=== PATIENT | male | born 1990 | race Caucasian/White ===

== ENCOUNTER 2024-09-12 17:13 | Inpatient (IN) | payer OTHER ==
[2024-09-12 17:59] VITALS: BMI 31.1
[2024-09-12] MEDS ORDERED: POLYETHYLENE GLYCOL (HEALTHYLAX) 3350 17 GM PACKET PO PRN (20:10)
[2024-09-12] MEDS ORDERED: BENZOCAINE/MENTHOL (CHLORASEPTIC ) LOZENGE MM PRN (20:10)
[2024-09-12] MEDS ORDERED: ACETAMINOPHEN 325 MG TABLET (FP) PO PRN (20:10)
[2024-09-12] MEDS ORDERED: MAG HYDROX/AL HYDROX/SIMETH 30 ML UNIT-DOSE CUP PO PRN (20:10)
[2024-09-12] MEDS ORDERED: BENZONATATE 200 MG CAPSULE PO PRN (20:10)
[2024-09-12] MEDS ORDERED: guaiFENesin 600 MG TABLET.ER (FP) PO PRN (20:10)
[2024-09-12] MEDS ORDERED: IBUPROFEN 400 MG TABLET (FP) PO PRN (20:10)
[2024-09-12] MEDS ORDERED: LOPERAMIDE HCL 2 MG CAPSULE PO PRN (20:10)
[2024-09-12] MEDS ORDERED: ONDANSETRON *ODT* 4 MG TABLET SL PRN (20:10)
[2024-09-12] MEDS ORDERED: DICYCLOMINE HCL 10 MG CAPSULE PO PRN (20:10)
[2024-09-12] MEDS ORDERED: MAGNESIUM HYDROX 2400MG/30ML ORAL SUSPENSION 30 ML CUP PO PRN (20:10)
[2024-09-12] MEDS ORDERED: IBUPROFEN 600 MG TABLET (FP) PO PRN (20:10)
[2024-09-12] MEDS ORDERED: BISMUTH SUBSALICYLATE 524 MG/30 ML PO PRN (20:10)
[2024-09-12] MEDS ORDERED: chlordiazePOXIDE HCL 25 MG CAPSULE PO PRN (20:11)
[2024-09-12] MEDS ORDERED: levETIRAcetam 500 MG TABLET (FP) PO ONE (21:41)
[2024-09-12] MEDS ORDERED: chlordiazePOXIDE HCL 25 MG CAPSULE ONE ×2 (21:41→21:56)
[2024-09-12] MEDS ORDERED: METOPROLOL TARTRATE 25 MG TABLET (FP) ONE (21:42)
[2024-09-12] MEDS ORDERED: MELATONIN 5 MG TABLETS ONE (21:42)
[2024-09-12] MEDS: THIAMINE 100 MG TABLET PO SCH (21:51)
[2024-09-12] MEDS: levETIRAcetam 500 MG TABLET (FP) PO SCH (21:51)
[2024-09-12] MEDS: MELATONIN 5 MG TABLETS PO SCH (21:51)
[2024-09-12] MEDS: METOPROLOL TARTRATE 25 MG TABLET (FP) PO ONE ×2 (21:51→23:50)
[2024-09-12] MEDS: chlordiazePOXIDE HCL 25 MG CAPSULE PO ONE (21:52)
[2024-09-12] MEDS: chlordiazePOXIDE HCL 25 MG CAPSULE PO SCH (22:02)
[2024-09-12] MEDS: METHOCARBAMOL 500 MG TABLET PO PRN (23:41)
[2024-09-12] MEDS: hydrOXYzine PAMOATE 25 MG CAPSULE (FP) PO PRN (23:41)
[2024-09-13] MEDS: PRENATAL VITAMINS W/ FOLIC ACID TABLET (FP) PO SCH (10:14)
[2024-09-13 12:55] LABS: POTASSIUM 3.7 mmol/L (3.5-5.1)
[2024-09-13 13:01] LABS: HEMATOCRIT 40.4 % (35.4-49); HEMOGLOBIN 13.7 GM/dL (11.7-16.9); MCH 32.6 pg (25.7-33.7); MEAN CELL VOLUME 96.1 fl (80-96); MEAN PLT VOLUME 8.7 fl (7.5-11.1); PLATELET COUNT 245 10^3/uL (134-434); RBC 4.21 M/mm3 (4.00-5.60); RDW 15.9 % (11.9-15.9); WHITE BLOOD COUNT 7.2 K/mm3 (4.0-10.0)
[2024-09-13 13:06] LABS: ALBUMIN 3.4 g/dl (3.4-5.0); BLOOD UREA NITROGEN 6.9 mg/dL (7-18); CALCIUM 9.1 mg/dL (8.5-10.1)
[2024-09-13 13:09] LABS: CREATININE 0.9 mg/dL (0.55-1.3)
[2024-09-13 13:11] LABS: TOT PROT 7.1 g/dl (6.4-8.2)
[2024-09-13 13:28] LABS: BILIRUBIN,TOTAL 1.1 mg/dL (0.2-1)
[2024-09-14] MEDS: chlordiazePOXIDE HCL 25 MG CAPSULE PO SCH (05:30)
[2024-09-15] MEDS ORDERED: chlordiazePOXIDE HCL 10 MG CAPSULE PO PRN
[2024-09-15] MEDS: chlordiazePOXIDE HCL 10 MG CAPSULE PO SCH (05:25)
[2024-09-15] MEDS: NALTREXONE HCL 50 MG TABLET PO SCH (11:24)
[2024-09-15] MEDS: METOPROLOL TARTRATE 50 MG TABLET (FP) PO ONE (22:06)
[2024-09-16] MEDS: chlordiazePOXIDE HCL 10 MG CAPSULE PO SCH (05:30)
[2024-09-16 06:25] VITALS: RESP 18
[2024-09-16 08:41] VITALS: BP 108/69; PULSE 78; TEMP 97.6
[2024-09-16] MEDS: NALOXONE (NYS OPIOID OVERDOSE PROGRAM) 4 MG/0.1 ML SPRAY NS SCH (10:30)
[2024-09-17] MEDS ORDERED: chlordiazePOXIDE HCL 10 MG CAPSULE PO ONE (05:00)
== END 2024-09-16 10:55 | disposition home or self-care (01) | DRG 775 ==
LOC: YASAS 17:13 → Y6N 22:04
PROVIDERS: ADMIT Allergy & Immunology; ATTEND Surgery
PROC: HZ2ZZZZ Detoxification Services for Substance Abuse Treatment (ICD-10-PCS; principal; 2024-09-12)
DX: F10.230 Alcohol dependence with withdrawal, uncomplicated (principal); F10.282 Alcohol dependence with alcohol-induced sleep disorder; F10.24 Alcohol dependence with alcohol-induced mood disorder; G47.00 Insomnia, unspecified
CPT/HCPCS: 36415; 80053; 80305; 80307; 83036; 85027; 86780; 93005; 93010

== ENCOUNTER 2024-09-16 15:14 | Inpatient (IN) | payer OTHER ==
[2024-09-16 16:14] VITALS: BMI 31.1
[2024-09-16] MEDS ORDERED: NALOXONE HCL 0.4 MG/ML VIAL IVPUSH PRN (16:56)
[2024-09-16] MEDS ORDERED: BENZONATATE 200 MG CAPSULE PO PRN (16:56)
[2024-09-16] MEDS ORDERED: ACETAMINOPHEN 325 MG TABLET (FP) PO PRN (16:56)
[2024-09-16] MEDS ORDERED: NICOTINE POLACRILEX 2 MG GUM BUC PRN (16:56)
[2024-09-16] MEDS ORDERED: POLYETHYLENE GLYCOL (HEALTHYLAX) 3350 17 GM PACKET PO PRN (16:56)
[2024-09-16] MEDS ORDERED: hydrOXYzine PAMOATE 25 MG CAPSULE (FP) PO PRN (16:56)
[2024-09-16] MEDS ORDERED: MAG HYDROX/AL HYDROX/SIMETH 30 ML UNIT-DOSE CUP PO PRN (16:56)
[2024-09-16] MEDS ORDERED: guaiFENesin 600 MG TABLET.ER (FP) PO PRN (16:56)
[2024-09-16] MEDS ORDERED: MAGNESIUM HYDROX 2400MG/30ML ORAL SUSPENSION 30 ML CUP PO PRN (16:56)
[2024-09-16] MEDS ORDERED: NICOTINE POLACRILEX 2 MG LOZENGE BC PRN (16:56)
[2024-09-16] MEDS ORDERED: METHOCARBAMOL 500 MG TABLET PO PRN (16:56)
[2024-09-16] MEDS ORDERED: LOPERAMIDE HCL 2 MG CAPSULE PO PRN (16:56)
[2024-09-16] MEDS ORDERED: BENZOCAINE/MENTHOL (CHLORASEPTIC ) LOZENGE MM PRN (16:56)
[2024-09-16] MEDS: MELATONIN 5 MG TABLETS PO SCH (21:03)
[2024-09-16] MEDS: levETIRAcetam 500 MG TABLET (FP) PO SCH (21:04)
[2024-09-16] MEDS: THIAMINE 100 MG TABLET PO SCH (21:04)
[2024-09-17] MEDS: PRENATAL VITAMINS W/ FOLIC ACID TABLET (FP) PO SCH (09:34)
[2024-09-17] MEDS: NALTREXONE HCL 50 MG TABLET PO SCH (09:34)
[2024-09-20] MEDS: IBUPROFEN 600 MG TABLET (FP) PO PRN (10:19)
[2024-09-20] MEDS: QUEtiapine FUMARATE 50 MG TABLET PO SCH (21:32)
[2024-09-20] MEDS: MELATONIN 5 MG TABLETS PO SCH (21:33)
[2024-09-21] MEDS: IBUPROFEN 400 MG TABLET (FP) PO PRN (13:45)
[2024-09-22] MEDS: LIDOCAINE 5% TOPICAL PATCH TP SCH (15:29)
[2024-09-22] MEDS: LIDOCAINE PATCH REMOVAL MC SCH (21:35)
[2024-09-23 13:16] LABS: INR 0.98 (0.83-1.09); PROTHROMBIN TIME (PATIENT) 11.1 SEC (9.7-13.0)
[2024-09-24] MEDS: LACTULOSE 20 GM/30 ML UDC (FOR ORAL USE ONLY) PO PRN (08:42)
[2024-09-24] MEDS: QUEtiapine FUMARATE 50 MG TABLET PO SCH (21:38)
[2024-09-26] MEDS: LACTULOSE 20 GM/30 ML UDC (FOR ORAL USE ONLY) PO SCH (14:37)
[2024-09-29] MEDS: NALTREXONE MICROSPHERES (VIVITROL) 380 MG DISP.SYRIN IM ONE (11:08)
[2024-09-30 06:42] VITALS: BP 113/78; PULSE 78; RESP 18; TEMP 97.4
[2024-09-30] MEDS: NALOXONE (NYS OPIOID OVERDOSE PROGRAM) 4 MG/0.1 ML SPRAY NS SCH (09:21)
== END 2024-09-30 09:32 | disposition home or self-care (01) | DRG 772 ==
LOC: YASAS 15:14 → Y3E 17:05
PROVIDERS: ADMIT Surgery; ATTEND Psychiatry & Neurology Pain Medicine
PROC: HZ42ZZZ Group Counseling for Substance Abuse Treatment, Cognitive-Behavioral (ICD-10-PCS; principal; 2024-09-16)
DX: F10.20 Alcohol dependence, uncomplicated (principal); F10.282 Alcohol dependence with alcohol-induced sleep disorder; F10.24 Alcohol dependence with alcohol-induced mood disorder; F32.A Depression, unspecified; E72.20 Disorder of urea cycle metabolism, unspecified; M54.50 Low back pain, unspecified; G89.29 Other chronic pain; Z56.0 Unemployment, unspecified
CPT/HCPCS: 36415; 80305; 80307; 82140; 82652; 83735; 85610; 86803; 87811